=== PATIENT | female | born 1940 | race Caucasian/White ===

== ENCOUNTER 2024-08-05 09:06 | Outpatient (CLI) | payer MEDICARE, SELFPAY ==
[2024-08-05 09:28] VITALS: BP 84/48; PULSE 80; RESP 16; TEMP 36.5; O2SAT 98
[2024-08-05 10:09] VITALS: BP 101/49; PULSE 71; RESP 16; TEMP 36.4; O2SAT 98
[2024-08-05 11:09] VITALS: BP 110/42; PULSE 67; RESP 16; TEMP 36.4; O2SAT 97
== END 2024-08-05 23:59 | disposition home or self-care (01) ==
LOC: MEDOUTP 09:07
PROVIDERS: Referring Provider Internal Medicine Hematology & Oncology; Visit Provider Internal Medicine Hematology & Oncology
DX: D64.81 Anemia due to antineoplastic chemotherapy (principal)
CPT/HCPCS: 36430; 86644; 86850; 86870; 86900; 86901; 86902; 86905; 86920; 86921; 86922; P9016; A4216